=== PATIENT | male | born 1995 ===

== ENCOUNTER 2017-06-29 03:22 | Observation (INO) | payer MEDICAID ==
[2017-06-29] MEDS ORDERED: SODIUM CHLORIDE 0.9% FLUSH 10 ML FLUSH IV FLUSH PRN (06:30)
[2017-06-29] MEDS ORDERED: MAGNESIUM HYDROXIDE SUSP 30 ML CUP PO PRN (06:30)
[2017-06-29] MEDS ORDERED: ONDANSETRON HCL 4 MG/2 ML VIAL IVP PRN (06:30)
[2017-06-29] MEDS ORDERED: SENNOSIDES 8.6 MG TAB PO PRN (06:30)
[2017-06-29] MEDS ORDERED: NALOXONE HCL 0.4 MG/ML AMP IV PUSH PRN (06:30)
[2017-06-29] MEDS ORDERED: BISACODYL 10 MG SUPP RECTAL PRN (06:30)
[2017-06-29] MEDS ORDERED: LACTULOSE SYRUP 20 GM/30 ML CUP PO PRN (06:30)
[2017-06-29] MEDS: AMPICILLIN-SULBACTAM INJ 3 GM in SODIUM CHLORIDE 0.9% INJ 100 ML IV SCH ×3 (07:03→17:18)
[2017-06-29] MEDS: SODIUM CHLOR 0.9% 1000 ML INJ 1,000 ML IV SCH ×2 (07:03→17:18)
[2017-06-29] MEDS: DEXAMETHASONE SOD PHOS 4 MG/ML VIAL IV PUSH SCH ×3 (07:04→22:31)
[2017-06-29 08:00] VITALS: BP 130/60; PULSE 87; RESP 18; TEMP 97.6; O2SAT 98
[2017-06-29] MEDS: SODIUM CHLORIDE 0.9% FLUSH 10 ML FLUSH IV FLUSH SCH ×2 (08:09→21:00)
--- NOTE | 2017-06-29 09:27 | MB ---
cc: Ferny Aguirre MD DATE OF CONSULT: 06/29/2017 CHIEF COMPLAINT: Peritonsillar abscess. HISTORY OF PRESENT ILLNESS: This is a 22-year-old male who complains of worsening sore throat over the last 5-7 days. It got to the point last night where he was unable to swallow, was in severe pain, and therefore went to an outside emergency room. After evaluation at the outside emergency room, they determined he had a questionable peritonsillar abscess and decision was made for transfer to [facility] for definitive care. At this time, the patient reports that after receiving some antibiotics, he feels significantly better, he is able to tolerate p.o. intake, he is still in pain, but it is significantly improved, and he feels that his talking is greatly improved as well. PAST MEDICAL HISTORY, PAST SURGICAL HISTORY, FAMILY HISTORY, MEDICATIONS, AND ALLERGIES: Are as per the chart and reviewed. PHYSICAL EXAMINATION: The patient is alert and oriented x 3, in on acute distress. He is resting comfortably in bed. HEENT: Reveals normal-appearing tympanic membranes. External auditory canals are clear. Nasal exam is clear without lesions noted or epistaxis. Oral cavity, oropharynx reveals significant edema of the oropharynx. There is no uvula shift. The right tonsil does appear slightly enlarged compared to the left tonsil. There is exudate bilaterally with significant erythema around the anterior tonsillar pillars. Flexible scope at bedside reveals a widely patent airway. The base of tongue is intact. The vocal cords are mobile without lesions or ulcerations. ASSESSMENT AND PLAN: Patient with significant acute pharyngitis with peritonsillar phlegmon. At this time, there is no drainable abscess. Recommend 24 hours of intravenous antibiotics as well as steroids as well as a p.m. course of 10 days of clindamycin. I explained in detail to the patient that he must continue the p.o. clindamycin for a total of 10 days; otherwise, he may significantly notice worsening of his pain and would have to return to the emergency room for a possible drainage of a peritonsillar abscess. At this time, patient is able to tolerate p.o. intake. Recommend 24 hours of intravenous antibiotics. Thank you for the consultation. Ferny Aguirre MD ATT/TI , 09:01 AM , 09:25 AM
[2017-06-29 12:00] VITALS: BP 122/55; PULSE 76; RESP 18; TEMP 98.5; O2SAT 98
--- NOTE | 2017-06-29 12:13 | HHI.HP ---
HPI Service [facility] Hospitalists Primary Care Physician Unknown Admission Diagnosis Peritonsillar abscess Diagnoses: Chief Complaint: Throat Pain Travel History International Travel<30 Days: No Contact w/Intl Traveler <30 Da: No Traveled to Known Affected Are: No Sepsis Criteria SIRS Criteria (2 or more): WBC > 61042, < 4000 or > 10% bands Sepsis Criteria (SIRS+source): Infect source susp/known History of Present Illness Patient is a 22-year-old male with no significant medical history who came in initially to [facility] for complaints of throat pain. [facility] transferred patient to [facility] for ENT consult. Patient is here examined today. Mother at the bedside. Reports he has been having throat pain , odynophagia for the past few days however he decided to go to get evaluated only yesterday. Patient states that he has been taking Mucinex without relief. He denies any fevers, chills, nausea, vomiting, diarrhea. Denies any chest pain, palpitations, headaches, dizziness, shortness of breath or dyspnea. Review of Systems Except as stated in HPI: all other systems reviewed are Neg Past Family Social History Past Medical History None Past Surgical History None Reported Medications None Allergies: Coded Allergies: No Known Allergies (Unverified , 06/29/17) Active Ordered Medications Current Medications Medications (Trade) Dose Ordered Sig/Dewey Route Start Time Stop Time Status Last Admin Sodium Chloride 1,000 ml @ 100 mls/hr Q10H IV 06/29/17 06:16 06/29/17 07:03 (NS Flush) 2 ml UNSCH PRN IV FLUSH 06/29/17 06:30 (NS Flush) 2 ml BID IV FLUSH 06/29/17 09:00 (Zofran Inj) 4 mg Q6H PRN IVP 06/29/17 06:30 (Narcan Inj) 0.4 mg UNSCH PRN IV PUSH 06/29/17 06:30 (Milk Of Magnesia Liq) 30 ml Q12H PRN PO 06/29/17 06:30 (Senokot) 17.2 mg Q12H PRN PO 06/29/17 06:30 (Dulcolax Supp) 10 mg DAILY PRN RECTAL 06/29/17 06:30 (Lactulose Liq) 30 ml DAILY PRN PO 06/29/17 06:30 Ampicillin Sodium/ Sulbactam Sodium 3 gm/Sodium Chloride 100 ml @ 200 mls/hr Q6H IV 06/29/17 06:30 06/29/17 12:58 (Decadron Inj) 4 mg Q8HR IV PUSH 06/29/17 06:30 06/29/17 12:58 (Flu (Quadrivalent) Vaccine Inj) 0.5 ml ONCE ONCE IM 06/30/17 10:00 06/30/17 10:01 Family History Denies any significant family medical history Social History Reports alcohol use Thursday 7 days every week Reports tobacco use, on occasion "whenever, I feel like it." Denies illicit drug use Physical Exam Vital Signs Vital Signs Date Time Temp Pulse Resp B/P (MAP) Pulse Ox O2 Delivery O2 Flow Rate FiO2 06/29/17 08:00 97.6 87 18 130/60 (83) 98 Physical Exam GENERAL: This is a well-nourished, well-developed patient, in no apparent distress. SKIN: No rashes, ecchymoses or lesions. Cool and dry. HEAD: Normocephalic. EYES: Pupils equal round and reactive. Extraocular motions intact. No scleral icterus. No injection or drainage. ENT: Nose without bleeding. Throat without erythema, white patch and induration right tonsil. Uvula midline. Airway patent. NECK: Trachea midline. Right neck with slight edema. CARDIOVASCULAR: Regular rate and rhythm without murmurs, gallops, or rubs. RESPIRATORY: Clear to auscultation. Breath sounds equal bilaterally. No wheezes , rales, or rhonchi. GASTROINTESTINAL: Abdomen soft, non-tender, nondistended.BS Active x4 MUSCULOSKELETAL: Extremities without clubbing, cyanosis, or edema. NEUROLOGICAL: Awake and alert. Cranial nerves II through XII intact. Motor and sensory grossly within normal limits. Five out of 5 muscle strength in all muscle groups. Normal speech. Caprini VTE Risk Assessment Caprini VTE Risk Assessment: No/Low Risk (score <= 1) Caprini Risk Assessment Model Point Value = 1 Point Value = 2 Point Value = 3 Point Value = 5 Age 41-60 Minor surgery BMI > 25 kg/m2 Swollen legs Varicose veins or History of unexplained or recurrent spontaneous Oral contraceptives or hormone replacement Sepsis (< 1 month) Serious lung disease, including pneumonia (< 1 month) Abnormal pulmonary function Acute myocardial infarction Congestive heart failure (< 1 month) History of inflammatory bowel disease Medical patient at bed rest Age 61-74 Arthroscopic surgery Major open surgery (> 45 min) Laparoscopic surgery (> 45 min) Malignancy Confined to bed (> 72 hours) Immobilizing plaster cast Central venous access Age >= 75 History of VTE Family history of VTE Factor V Leiden Prothrombin [id number] Lupus anticoagulant Anticardiolipin antibodies Elevated serum homocysteine Heparin-induced thrombocytopenia Other congenital or acquired thrombophilia Stroke (< 1 month) Elective arthroplasty Hip, pelvis, or leg fracture Acute spinal cord injury (< 1 month) Prophylaxis Regimen Total Risk Factor Score Risk Level Prophylaxis Regimen 0-1 Low Early ambulation 2 Moderate Order ONE of the following: *Sequential Compression Device (SCD) *Heparin 5000 units SQ BID 3-4 Higher Order ONE of the following medications: *Heparin 5000 units SQ TID *Enoxaparin/Lovenox 40 mg SQ daily (WT < 150 kg, CrCl > 30 mL/min) *Enoxaparin/Lovenox 30 mg SQ daily (WT < 150 kg, CrCl > 10-29 mL/min) *Enoxaparin/Lovenox 30 mg SQ BID (WT < 150 kg, CrCl > 30 mL/min) AND/OR *Sequential Compression Device (SCD) 5 or more Highest Order ONE of the following medications: *Heparin 5000 units SQ TID (Preferred with Epidurals) *Enoxaparin/Lovenox 40 mg SQ daily (WT < 150 kg, CrCl > 30 mL/min) *Enoxaparin/Lovenox 30 mg SQ daily (WT < 150 kg, CrCl > 10-29 mL/min) *Enoxaparin/Lovenox 30 mg SQ BID (WT < 150 kg, CrCl > 30 mL/min) AND *Sequential Compression Device (SCD) Assessment and Plan Problem List: (1) Tonsillar abscess ICD Code: J36 - Peritonsillar abscess Assessment and Plan Patient is a 22-year-old male with no dog primary medical history who came in initially to [facility] for complaints of throat pain. Tonsillar Abcess -odynophagia -Seen by ENT Jalen Ponce w/o drainable abscess. Continue with steroids and intravenous antibiotics for now. Plan to DC tomorrow with 10 days of clindamycin. -Continue IV Unasyn, Decadron IV 4 mg every 8 hours. -Start soft diet as tolerated. -Monitor labs DVT SCDs, early ambulation This note was transcribed by maricel De La Rosa. I, Dr. Jacob Nowak personally performed the history, physical exam, and medical decision making; and confirmed the accuracy of the information in the transcribed note. Authenticated by Dr. Jacob Nowak on 06/29/17 at 12:14. Code Status Full code Discussed Condition With Patient, mother, nursing Cullen Piña Jun 29, 2017 12:13 Jacob Nowak MD Jun 29, 2017 12:15
[2017-06-29 12:51] LABS: AUTOMATED NEUTROPHIL # 13.7 TH/MM3 (1.8-7.7); BASOPHIL % 0.3 % (0.0-2.0); HEMOGLOBIN 14.2 GM/DL (13.0-17.0); LYMPH % 8.1 % (9.0-44.0); LYMPHOCYTE # 1.2 TH/MM3 (1.0-4.8); MEAN CELL VOLUME 84.4 FL (80.0-100.0); MEAN CORPUSCULAR HEMOGLOBIN 28.6 PG (27.0-34.0); MEAN CORPUSCULAR HGB CONC 33.9 % (32.0-36.0); MEAN PLATELET VOLUME 9.1 FL (7.0-11.0); MONO % 0.8 % (0.0-8.0); MONOCYTE # 0.1 TH/MM3 (0-0.9); NEUT % 90.8 % (16.0-70.0); PLATELET COUNT 292 TH/MM3 (150-450); RED BLOOD COUNT 4.97 MIL/MM3 (4.50-5.90); RED CELL DISTRIBUTION WIDTH 12.9 % (11.6-17.2); WHITE BLOOD COUNT 15.1 TH/MM3 (4.0-11.0)
[2017-06-29 13:37] LABS: BICARBONATE 25.7 MEQ/L (21.0-32.0); CALCIUM 9.1 MG/DL (8.5-10.1); CREATININE 0.81 MG/DL (0.60-1.30)
[2017-06-29 16:00] VITALS: BP 127/58; PULSE 95; RESP 18; TEMP 97.9; O2SAT 97
[2017-06-29 20:37] VITALS: BP 131/63; PULSE 100; RESP 14; TEMP 98.3; O2SAT 99
[2017-06-30] MEDS: AMPICILLIN-SULBACTAM INJ 3 GM in SODIUM CHLORIDE 0.9% INJ 100 ML IV SCH ×2 (00:08→05:37)
[2017-06-30] MEDS: SODIUM CHLOR 0.9% 1000 ML INJ 1,000 ML IV SCH (02:21)
[2017-06-30 05:10] VITALS: BP 121/57; PULSE 99; RESP 16; TEMP 98; O2SAT 98
[2017-06-30] MEDS: DEXAMETHASONE SOD PHOS 4 MG/ML VIAL IV PUSH SCH (05:42)
[2017-06-30 06:51] LABS: AUTOMATED NEUTROPHIL # 13.2 TH/MM3 (1.8-7.7); BASOPHIL % 0.1 % (0.0-2.0); HEMOGLOBIN 13.2 GM/DL (13.0-17.0); LYMPH % 10.7 % (9.0-44.0); LYMPHOCYTE # 1.7 TH/MM3 (1.0-4.8); MEAN CELL VOLUME 85.5 FL (80.0-100.0); MEAN CORPUSCULAR HEMOGLOBIN 28.9 PG (27.0-34.0); MEAN CORPUSCULAR HGB CONC 33.8 % (32.0-36.0); MEAN PLATELET VOLUME 9.3 FL (7.0-11.0); MONO % 4.2 % (0.0-8.0); MONOCYTE # 0.6 TH/MM3 (0-0.9); PLATELET COUNT 276 TH/MM3 (150-450); RED BLOOD COUNT 4.56 MIL/MM3 (4.50-5.90); WHITE BLOOD COUNT 15.6 TH/MM3 (4.0-11.0)
[2017-06-30 07:26] LABS: BICARBONATE 25.5 MEQ/L (21.0-32.0); CALCIUM 8.2 MG/DL (8.5-10.1); CREATININE 0.85 MG/DL (0.60-1.30)
[2017-06-30 08:00] VITALS: BP 127/58; PULSE 64; RESP 16; TEMP 96.5; O2SAT 98
[2017-06-30] MEDS ORDERED: CLIN150C14 PO (08:19)
--- NOTE | 2017-06-30 08:19 | HHI.DCPOC ---
Discharge Care Plan Diagnosis: (1) Tonsillar abscess Goals to Promote Your Health * To prevent worsening of your condition and complications * To maintain your health at the optimal level Directions to Meet Your Goals Take your medications as prescribed Follow your dietary instruction Follow activity as directed Keep your appointments as scheduled Take your immunizations and boosters as scheduled If your symptoms worsen call your PCP, if no PCP go to Urgent Care Center or Emergency Room Smoking is Dangerous to Your Health. Avoid second hand smoke Call the 24-hour hour crisis hotline for domestic abuse at Mony Reece PA-C Jun 30, 2017 8:19 am
[2017-06-30] MEDS: SODIUM CHLORIDE 0.9% FLUSH 10 ML FLUSH IV FLUSH SCH (09:00)
[2017-06-30] MEDS ORDERED: INFLUENZA VIRUS VACCINE (QUADRIVALENT) 0.5 ML SYR IM ONE (10:00)
[2017-06-30 12:00] VITALS: BP 119/56; PULSE 75; RESP 16; TEMP 97.7; O2SAT 99
--- NOTE | 2017-06-30 14:04 | HHI.PR ---
Subjective Remarks Follow-up peritonsillar abscess. He feels much better since tolerating regular diet. He wants to go home. Seen with mother. Discussed with nursing Objective Vitals Vital Signs Date Time Temp Pulse Resp B/P (MAP) Pulse Ox O2 Delivery O2 Flow Rate FiO2 06/30/17 12:00 97.7 75 16 119/56 (77) 99 06/30/17 08:00 96.5 64 16 127/58 (81) 98 06/30/17 05:10 98.0 99 16 121/57 (78) 98 06/29/17 20:37 98.3 100 14 131/63 (85) 99 06/29/17 16:00 97.9 95 18 127/58 (81) 97 I/O 06/29/17 06/29/17 06/29/17 06/30/17 06/30/17 06/30/17 07:00 15:00 23:00 07:00 15:00 23:00 Intake Total 560 ml Balance 560 ml Intake Oral 360 ml IV Total 200 ml # Voids 3 Result Diagram: 06/30/17 0545 06/30/17 0545 Objective Remarks GENERAL: This is a well-nourished, well-developed patient, in no apparent distress. SKIN: No rashes, ecchymoses or lesions. Cool and dry. ENT: Nose without bleeding. Throat without erythema, improved white patch and induration right tonsil. Uvula midline. Airway patent. CARDIOVASCULAR: Regular rate and rhythm without murmurs, gallops, or rubs. RESPIRATORY: Clear to auscultation. Breath sounds equal bilaterally. No wheezes , rales, or rhonchi. GASTROINTESTINAL: Abdomen soft, non-tender, nondistended.BS Active x4 MUSCULOSKELETAL: Extremities without clubbing, cyanosis, or edema. NEUROLOGICAL: Awake and alert. Cranial nerves II through XII intact. Motor and sensory grossly within normal limits. Five out of 5 muscle strength in all muscle groups. Normal speech. Procedures none A/P Problem List: (1) Tonsillar abscess ICD Code: J36 - Peritonsillar abscess Assessment and Plan Patient is a 22-year-old male with no significant medical history who came in initially to [facility] for complaints of throat pain. Tonsillar Abcess. Clinically much improved on IV Unasyn and Decadron tolerating regular diet. Patient will be discharged home with 10 more days of clindamycin per ENT recommendations Leukocytosis likely secondary to steroids Hyperglycemia likely steroid induced. Obtain A1c. Patient to follow-up results outpatient DVT SCDs, early ambulation Discharge Planning Discharge patient to home Condition on discharge: Improved Regular Diet as tolerated Ad Xiao activity Rx written: Clindamycin Follow-up with primary care physician and ENT Jacob Nowak MD Jun 30, 2017 14:04
[2017-06-30 16:45] LABS: HEMOGLOBIN A1C 5.6 % (4.3-6.0)
== END 2017-06-30 13:47 | disposition home or self-care (01) ==
LOC: NEPHCDU 06:13
PROVIDERS: ADMIT Internal Medicine; ATTEND Internal Medicine
DX: J36 Peritonsillar abscess (principal); R73.9 Hyperglycemia, unspecified; D72.829 Elevated white blood cell count, unspecified; T38.0X5A Adverse effect of glucocorticoids and synthetic analogues, initial encounter; Z23 Encounter for immunization; Z72.0 Tobacco use
CPT/HCPCS: 80048; 83036; 85025; 90471; 90686; 96361; 96365; 96366; G0378; J0295; J1100; J7030; G0008; Q2038